=== PATIENT | male | born 1955 | race Two or more races ===

== ENCOUNTER 2016-10-16 23:20 | Emergency (ER) | payer SELFPAY ==
[2016-10-16 23:25] VITALS: BMI 27.2
[2016-10-16] MEDS ORDERED: Sodium Chloride 0.9% 1,000 ML IV STA (23:44)
[2016-10-16 23:53] LABS: ADD MANUAL DIFF? NO
[2016-10-16 23:55] VITALS: PULSE 64; RESP 16; TEMP 97.6; O2SAT 100
[2016-10-16 23:56] LABS: BASO # 0.02 K/mm3 (0.0-2.0); BASO % 0.1 % (0.0-3.0); EOS # 0.1 (0.0-0.7); EOS % 0.6 % (1.5-5.0); GRAN # 14.45 (1.4-6.5); GRAN % 87.8 % (50.0-68.0); LYMPH # 1.3 (1.2-3.4); LYMPH % 7.8 % (22.0-35.0); MEAN CORPUSCULAR HEMOGLOBIN 29.4 pg (25.0-35.0); MEAN PLATELET VOLUME 10.2 fl (7.0-11.0); MONO # 0.6 (0.1-0.6); MONO % 3.7 % (1.0-6.0); PLATELET COUNT 249 10^3/uL (120.0-450.0); WHITE BLOOD COUNT 16.5 10^3/ul (4.5-11.0)
[2016-10-17 00:12] LABS: ALB/GLOB RATIO 1.2 (1.1-1.8); ALKALINE PHOSPHATASE 78 U/L (38-133); ALT/SGPT 37 U/L (7-56); AST/SGOT 41 U/L (15-59); BILIRUBIN,TOTAL 0.6 mg/dL (0.2-1.3); BLOOD UREA NITROGEN 19 mg/dL (7-21); CALCIUM 9.7 mg/dL (8.4-10.5); CARBON DIOXIDE 26 mmol/L (21-33); CHLORIDE 101 mmol/L (95-110); GFR AFRICAN-AMERICAN > 60; GLUCOSE,RANDOM 162 mg/dL (70-110); LIPASE 332 U/L (23-300); POTASSIUM 3.4 mmol/L (3.6-5.0); SODIUM 142 mmol/L (132-148); TOTAL PROTEIN 8.7 g/dL (5.8-8.3)
[2016-10-17 00:14] LABS: INR 1.03 (0.93-1.08)
--- NOTE | 2016-10-17 00:27 | ED PDOC ---
Arrival/HPI - General Chief Complaint: GI Problem Time Seen by Provider: 10/16/16 23:36 Historian: Patient - History of Present Illness Narrative History of Present Illness (Text): 10/17/16 00:23 61yo male BIBA for abdominal pain associated with nausea and vomiting. 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 Reports previous history of similar abdominal pain. Denies diarrhea, constipation, fever, chills, melena, hematemesis, hematochezia, chest pain, urinary symptoms, hematuria, any other complaint. Past Medical History - Provider Review Nursing Documentation Reviewed: Yes - Infectious Disease Hx of Infectious Diseases: None - Renal Hx Kidney Stones: Yes - Psychiatric Hx Substance Use: No - Anesthesia Hx Anesthesia: No Family/Social History - Physician Review Nursing Documentation Reviewed: Yes Family/Social History: Unknown Family HX Smoking Status: Never Smoked Hx Alcohol Use: No Hx Substance Use: No Allergies/Home Meds Allergies/Adverse Reactions: Allergies No Known Allergies Allergy (Verified 10/16/16 23:25) Review of Systems - Physician Review All systems were reviewed & negative as marked: Yes - Review of Systems Constitutional: Normal Eyes: Normal ENT: Normal Respiratory: Normal Cardiovascular: Normal Gastrointestinal: Abdominal Pain, Nausea, Vomiting. absent: Constipation, Diarrhea, Hematochezia, Hematemesis Genitourinary Male: Normal Musculoskeletal: Normal Skin: Normal Neurological: Normal Endocrine: Normal Hemo/Lymphatic: Normal Psychiatric: Normal Physical Exam Vital Signs Reviewed: Yes Vital Signs Temp Pulse Resp Pulse Ox 10/16/16 23:53 97.6 F 64 16 100 Temperature: Afebrile Blood Pressure: Normal Pulse: Regular Respiratory Rate: Normal Appearance: Positive for: Well-Appearing, Non-Toxic, Comfortable Pain Distress: None Mental Status: Positive for: Alert and Oriented X 3 - Systems Exam Head: Present: Atraumatic, Normocephalic Pupils: Present: PERRL Extroacular Muscles: Present: EOMI Conjunctiva: Present: Normal Mouth: Present: Moist Mucous Membranes Neck: Present: Normal Range of Motion Respiratory/Chest: Present: Clear to Auscultation, Good Air Exchange. No: Respiratory Distress, Accessory Muscle Use Cardiovascular: Present: Regular Rate and Rhythm, Normal S1, S2. No: Murmurs Abdomen: Present: Tenderness (Diffuse), Normal Bowel Sounds, Other (Soft). No: Distention, Peritoneal Signs, Rebound, Guarding, McBurney's Point Tender, Rovsing's Sign Present Back: Present: Normal Inspection Upper Extremity: Present: Normal Inspection. No: Cyanosis, Edema Lower Extremity: Present: Normal Inspection. No: Edema Neurological: Present: GCS=15, CN II-XII Intact, Speech Normal Skin: Present: Warm, Dry, Normal Color. No: Rashes Psychiatric: Present: Alert, Oriented x 3, Normal Insight, Normal Concentration Medical Decision Making ED Course and Treatment: 10/17/16 00:31 Pt in ED for stated history. He was acting bizzare in ED. Pulled out his IV access states he will leave. He eloped from the ED. - Lab Interpretations Lab Results: 10/16/16 23:40 10/16/16 23:40 Lab Results 10/16/16 23:40: WBC 16.5 H, RBC 4.76, Hgb 14.0, Hct 40.0 L, MCV 84.0, MCH 29.4, MCHC 35.0, RDW 14.0, Plt Count 249, MPV 10.2, Gran % 87.8 H, Lymph % (Auto) 7.8 L, Turner % (Auto) 3.7, Eos % (Auto) 0.6 L, Baso % (Auto) 0.1, Gran # 14.45 H, Lymph # 1.3, Turner # 0.6, Eos # 0.1, Baso # 0.02, PT 11.1, INR 1.03, APTT 25.0, Sodium 142, Potassium 3.4 L, Chloride 101, Carbon Dioxide 26, Anion Gap 18, BUN 19, Creatinine 1.2, Est GFR ( Amer) > 60, Est GFR (Non-Af Amer) > 60, Random Glucose 162 H, Calcium 9.7, Total Bilirubin 0.6, AST 41, ALT 37, Alkaline Phosphatase 78, Total Protein 8.7 H, Albumin 4.8, Globulin 3.9, Albumin /Globulin Ratio 1.2, Lipase 332 H - Medication Orders Current Medication Orders: Discontinued Medications Sodium Chloride (Sodium Chloride 0.9%) 1,000 mls @ 1,000 mls/hr IV .Q1H STA Stop: 10/17/16 00:43 Last Admin: 10/17/16 00:15 Dose: Not Given Non-Admin Reason: Patient Refused Ketorolac Tromethamine (Toradol) 30 mg IVP STAT STA Stop: 10/16/16 23:45 Last Admin: 10/17/16 00:15 Dose: Not Given Non-Admin Reason: Patient Refused IVP Administration Document 10/17/16 00:15 [facility] (Rec: 10/17/16 00:28 [facility]) Charges for Administration # of IVP Administrations 0 Ondansetron HCl (Zofran Inj) 4 mg IVP ONCE ONE Stop: 10/16/16 23:45 Last Admin: 10/17/16 00:15 Dose: Not Given Non-Admin Reason: Patient Refused IVP Administration Document 10/17/16 00:15 MACY (Rec: 10/17/16 00:29 [facility]) Charges for Administration # of IVP Administrations 0 Disposition/Present on Arrival - Present on Arrival Any Indicators Present on Arrival: No History of DVT/PE: No History of Uncontrolled Diabetes: No Urinary Catheter: No History of Decub. Ulcer: No History Surgical Site Infection Following: None - Disposition Have Diagnosis and Disposition been Completed?: Yes Diagnosis: Abdominal pain Disposition: ELOPEMENT - ER ONLY Disposition Time: 00:20 Condition: FAIR
== END 2016-10-17 00:38 | disposition left against medical advice (07) ==
LOC: ED 23:20 → MERGE 23:20 → ED 10-17 00:38
DX: R10.9 Unspecified abdominal pain (principal)